=== PATIENT | male | born 2000 | race Caucasian/White ===

== ENCOUNTER 2022-05-17 10:08 | Emergency (ER) | payer OTHER ==
[2022-05-17 10:14] VITALS: BP 121/62
--- NOTE | 2022-05-17 10:29 | XRAY Report ---
PROCEDURE: Ankle 3 View LT INDICATIONS: injury/pain/swelling TECHNIQUE: 3 views of the ankle were acquired. COMPARISON: None FINDINGS: Bones: No fractures or dislocations. Ankle mortise is normally aligned. No suspicious bony lesions . Soft tissues: No tibiotalar joint effusion. Achilles tendon appears normal. Soft tissue swelling o jj the medial malleolus. IMPRESSION: Soft tissue swelling over the medial malleolus. No radiopaque foreign body. Reviewed by: Kye Lucas on 05/17/2022 9:27 AM CAMILO Approved by: Kye Lucas on 05/17/2022 9:27 AM CAMILO Station ID: [id number]
--- NOTE | 2022-05-17 11:25 | ED Physician Documentation ---
PD HPI LOWER EXT INJURY - Stated complaint Stated Complaint: LT ANKLE INJURY - Chief complaint Chief Complaint: Laceration - History obtained from History obtained from: Patient - Additional information Additional information: The patient comes to the emergency department chief complaint of left ankle laceration. He states he was chopping wood [place] his campsite and his hatchet missed the wood and the corner of it hit his ankle. He was able to walk afterward. Injury happened this morning. He sustained a laceration and wanted to get it checked. No other complaints at this time. Patient has had a tetanus shot in the last 10 years. Review of Systems Ten Systems: 10 systems reviewed and negative Constitutional: reports: Reviewed and negative Eyes: reports: Reviewed and negative Ears: reports: Reviewed and negative Nose: reports: Reviewed and negative Throat: reports: Reviewed and negative Cardiac: reports: Reviewed and negative Respiratory: reports: Reviewed and negative GI: reports: Reviewed and negative : reports: Reviewed and negative Skin: reports: Laceration (s) Musculoskeletal: reports: Reviewed and negative Neurologic: reports: Reviewed and negative Psychiatric: reports: Reviewed and negative Endocrine: reports: Reviewed and negative Immunocompromised: reports: Reviewed and negative PD PAST MEDICAL HISTORY - Present Medications Home Medications: Ambulatory Orders Medication Instructions Recorded Confirmed No Known Home Medications 05/17/22 05/17/22 - Allergies Allergies/Adverse Reactions: Allergies Allergy/AdvReac Type Severity Reaction Status Date / Time No Known Drug Allergies Allergy Verified 05/17/22 10:11 PD ED PE NORMAL - Vitals Vital signs reviewed: Yes - General General: Alert and oriented X 3, No acute distress, Well developed/nourished - HEENT HEENT: Atraumatic, PERRL, EOMI, Moist mucous membranes - Neck Neck: Supple, no meningeal sign - Cardiac Cardiac: Strong equal pulses - Respiratory Respiratory: No respiratory distress - Derm Derm: Normal color, Warm and dry, No rash, Other (1.5 cm laceration medial left ankle. Bleeding controlled. 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, No motor deficit, No sensory deficit, Normal speech - Psych Psych: Normal mood, Normal affect Results - Vitals Vitals: Oxygen O2 Source Room air - Rads (name of study) Left ankle x-ray series Radiology: Final report received, EMP read indepedently, See rad report (Negative) Procedures - Laceration (location) Left ankle Length in cm: 1.5 Wound type: Linear, Into subcut fat Neurovascular status: Sensory intact, Motor intact, Vascular intact Anesthesia: Lidocaine 1% Wound preparation: Hibiclens, Irrigated copiously NS, Wound explored, To the base Skin layer closure: Nylon, Interrupted, Size #-0 - enter number (4.0), Sutures - enter # (3) Other: Patient tolerated well, No complications, Neurovascular intact, Dressing applied, Tetanus UTD PD MEDICAL DECISION MAKING - ED course Complexity details: reviewed results, re-evaluated patient, considered differential, d/w patient ED course: Patient's wound was repaired as above. His x-ray is negative. We have discussed wound care and the timeline for suture removal. We have discussed the usual indications for return. Departure - Departure Disposition: 01 Home, Self Care Clinical Impression: Laceration Condition: Stable Instructions: ED Laceration All Comments: Wound has been repaired today with 2 synthetic sutures. These will need to be r emoved in 7 days by medical professional. In general, you should keep the wound clean and dry but you may allow water and soap to run over the wound. However, it is important that you do not rub, scrub, or immerse the wound. This is in order to prevent infection. If you begin to notice redness and swelling spreading progressively away from the wound, please have it rechecked. You will most likely have some bruising that comes up over the next couple of days as a result of the injury. Forms: Activity restrictions Discharge Date/Time: 05/17/22 11:31
== END 2022-05-17 11:31 | disposition home or self-care (01) ==
LOC: ED 10:08
DX: S91.012A Laceration without foreign body, left ankle, initial encounter (principal); W27.0XXA Contact with workbench tool, initial encounter; Y93.89 Activity, other specified
CPT/HCPCS: 12001; 99282; 99283

== ENCOUNTER 2023-07-13 16:33 | Emergency (ER) | payer OTHER ==
--- NOTE | 2023-07-13 17:36 | XRAY Report ---
PROCEDURE: Knee 3 View RT INDICATIONS: hx of recent dislocation TECHNIQUE: 3 views of the right knee were acquired. COMPARISON: None. FINDINGS: Bones: Mild lateral patellar tilting. No acute osseous fracture is identified. 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 No suspicious bony lesions. Soft tissues: Moderate to large knee joint effusion. No suspicious soft tissue calcifications or mas ses. IMPRESSION: Lateral tilting of the patella. No acute osseous fracture identified. Moderate to large joint effusio n. Reviewed by: Dave Hickman MD on 07/13/2023 5:35 PM PDT Approved by: Dave Hickman MD on 07/13/2023 5:35 PM PDT Station ID: [id number]
[2023-07-14 10:59] VITALS: BP 127/55; O2SAT 99
== END 2023-07-13 19:03 | disposition left against medical advice (07) ==
LOC: ED 16:33
DX: Z53.21 Procedure and treatment not carried out due to patient leaving prior to being seen by health care provider (principal)

== ENCOUNTER 2024-02-15 07:58 | Emergency (ER) | payer OTHER ==
--- NOTE | 2024-02-15 07:59 | ED Physician Documentation ---
PD HPI MHE - Stated complaint Stated Complaint: SI - History obtained from History obtained from: Patient - History of Present Illness Primary symptom: Suicidal ideation, Depression (for the past year or so in particular, but no treatment/counseling as yet. Had made appt that was later today.). 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 due to noise/est during day not allow good sleep, then added insomnia past week or so.), Other Similar symptoms before: No diagnosis Recently seen: Not recently seen Review of Systems Constitutional: denies: Fever, Chills Nose: denies: Rhinorrhea / runny nose, Congestion Throat: denies: Sore throat Respiratory: denies: Cough GI: denies: Abdominal Pain, Vomiting, Diarrhea Neurologic: denies: Generalized weakness Psychiatric: reports: Depressed, Suicidal (ideation without actions), Insomnia PD PAST MEDICAL HISTORY - Past Medical History Past Medical History: No Psych: Depression (has not sought counseling nor treatment. Had appt for today that he made, but was feeling suicidal so called for help. ) - Present Medications Home Medications: Ambulatory Orders Medication Instructions Recorded Confirmed No Known Home Medications 02/15/24 02/15/24 - Allergies Allergies/Adverse Reactions: Allergies Allergy/AdvReac Type Severity Reaction Status Date / Time No Known Drug Allergies Allergy Verified 02/15/24 08:31 - Living Situation Living Situation: reports: Alone (currently, as from . 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 ) Living Arrangement: reports: At home - Social History Does the pt smoke?: No Does the pt drink ETOH?: Yes ETOH Use: Other (alcholic fruit drinks mainly, every other day or so. Not daily. Denies withdrawal symptoms on days not drinking. ) Does the pt have substance abuse?: No PD ED PE NORMAL - Vitals Vital signs reviewed: Yes - General General: Alert and oriented X 3, No acute distress, Well developed/nourished - Cardiac Cardiac: RRR, No murmur - Respiratory Respiratory: Clear bilaterally - Abdomen Abdomen: Soft, Non tender - Derm Derm: Normal color, Warm and dry - Neuro Neuro: Alert and oriented X 3, No motor deficit, Normal speech Eye Opening: Spontaneous Motor: Obeys Commands Verbal: Oriented GCS Score: 15 - Psych Psych: No: Normal mood (depressed and sad. conversant and open to discussion. ) Results - Vitals Vitals: Vital Signs - 24 hr 02/15/24 08:02 Temperature 36.5 C Heart Rate 63 Respiratory 22 Rate Blood Pressure 142/75 H O2 Saturation 95 Oxygen O2 Source Room air - Labs Labs: Laboratory Tests 02/15/24 02/15/24 02/15/24 08:34 08:39 08:39 WBC 6.9 RBC 5.69 Hgb 16.0 Hct 48.5 MCV 85.2 MCH 28.1 MCHC 33.0 RDW 13.1 Plt Count 278 MPV 9.4 Neut # (Auto) 3.4 Lymph # (Auto) 2.6 Bowman # (Auto) 0.7 Eos # (Auto) 0.2 Baso # (Auto) 0.0 Absolute Nucleated RBC 0.00 Nucleated RBC % 0.0 Sodium 140 Potassium 3.8 Chloride 107 Carbon Dioxide 25 Anion Gap 8.0 BUN 11 Creatinine 0.8 Estimated GFR (MDRD) 120 Glucose 86 Calcium 9.9 Magnesium 1.8 Total Bilirubin 0.6 AST 29 ALT 36 Alkaline Phosphatase 88 Total Creatine Kinase 429 H Total Protein 6.9 Albumin 4.6 Globulin 2.3 Albumin/Globulin Ratio 2.0 Lipase 16 TSH 3.01 Urine Color LIGHT YELLOW Urine Clarity CLEAR Urine pH 6.0 Ur Specific [place] <=1.005 Urine Protein NEGATIVE Urine Glucose (UA) NEGATIVE Urine Ketones NEGATIVE Urine Occult Blood NEGATIVE Urine Nitrite NEGATIVE Urine Bilirubin NEGATIVE Urine Urobilinogen 0.2 (NORMAL) Ur Leukocyte Esterase NEGATIVE Ur Microscopic Review NOT INDICATED Urine Culture Comments NOT INDICATED Salicylates < 1.5 Urine Opiates Screen NEGATIVE Ur Buprenorphine Scrn NEGATIVE Ur Oxycodone Screen NEGATIVE Urine Methadone Screen NEGATIVE Acetaminophen 0.3 Ur Barbiturates Screen NEGATIVE Ur Tricyclics Screen NEGATIVE Ur Phencyclidine Scrn NEGATIVE Ur Amphetamine Screen NEGATIVE U Methamphetamines Scrn NEGATIVE U Benzodiazepines Scrn NEGATIVE Urine Cocaine Screen NEGATIVE U Cannabinoids Screen NEGATIVE Ur Drug Screen Comment CUTOFF CONC BELOW: Ethyl Alcohol 53.3 SARS-CoV-2 (PCR) 02/15/24 08:39 WBC RBC Hgb Hct MCV MCH MCHC RDW Plt Count MPV Neut # (Auto) Lymph # (Auto) Bowman # (Auto) Eos # (Auto) Baso # (Auto) Absolute Nucleated RBC Nucleated RBC % Sodium Potassium Chloride Carbon Dioxide Anion Gap BUN Creatinine Estimated GFR (MDRD) Glucose Calcium Magnesium Total Bilirubin AST ALT Alkaline Phosphatase Total Creatine Kinase Total Protein Albumin Globulin Albumin/Globulin Ratio Lipase TSH Urine Color Urine Clarity Urine pH Ur Specific [place] Urine Protein Urine Glucose (UA) Urine Ketones Urine Occult Blood Urine Nitrite Urine Bilirubin Urine Urobilinogen Ur Leukocyte Esterase Ur Microscopic Review Urine Culture Comments Salicylates Urine Opiates Screen Ur Buprenorphine Scrn Ur Oxycodone Screen Urine Methadone Screen Acetaminophen Ur Barbiturates Screen Ur Tricyclics Screen Ur Phencyclidine Scrn Ur Amphetamine Screen U Methamphetamines Scrn U Benzodiazepines Scrn Urine Cocaine Screen U Cannabinoids Screen Ur Drug Screen Comment Ethyl Alcohol SARS-CoV-2 (PCR) NOT DETECTED PD Medical Decision Making - ED course Complexity details: re-evaluated patient (The patient was advised of his acceptance at [facility] psychiatric floor. He was content and agreeable to this as he felt this was the most appropriate disposition for him.), considered differential, d/w patient, d/w internet consultant (Dr. Culver, psychiatry at [facility], who accepts pt in transfer. ) ED course: depressed for over a year or more. 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 Suicidal ideation with potential plan of cutting wrists. No actions. He called for help this morning. The patient has been well otherwise. Exam is benign without any abdominal tenderness or other acute process. Basic labs are normal. He is medically cleared at this point for psychiatric care and evaluation. The patient does not feel safe at home at this point with the increased suicidal ideation. He does feel inpatient would be more appropriate for himself and his own feeling of safety. Departure - Departure Disposition: 65 Psych Hosp/Unit DC/Xfer Clinical Impression: Depression, Reactive depression, Suicidal ideation Condition: Stable Record reviewed to determine appropriate education?: Yes Forms: PCP List
[2024-02-15 08:47] LABS: BILIRUBIN,URINE NEGATIVE (NEGATIVE); GLUCOSE, URINE (UA) NEGATIVE (NEGATIVE); KETONES,URINE (UA) NEGATIVE (NEGATIVE); LEUKOCYTE ESTERASE, URINE NEGATIVE (NEGATIVE); NITRITE,URINE NEGATIVE (NEGATIVE); OCCULT BLOOD,URINE NEGATIVE (NEGATIVE); PROTEIN,URINE NEGATIVE (NEGATIVE); UROBILINOGEN,URINE 0.2 (NORMAL) E.U./dL (NORMAL)
[2024-02-15 08:48] LABS: CLARITY,URINE CLEAR (CLEAR)
[2024-02-15 08:53] LABS: BASOPHILS % (AUTO) 0.4 %; EOSINOPHILS # (AUTO) 0.2 10^3/uL (0.0-0.7); EOSINOPHILS % (AUTO) 2.4 %; HCT - HEMATOCRIT 48.5 % (42.0-52.0); LYMPHOCYTES # (AUTO) 2.6 10^3/uL (1.5-3.5); LYMPHOCYTES % (AUTO) 37.8 %; MEAN CORPUSCULAR HEMOGLOBIN 28.1 pg (27.0-31.0); MEAN CORPUSCULAR VOLUME 85.2 fL (80.0-94.0); MEAN PLATELET VOLUME 9.4 fL (7.4-11.4); MONOCYTES # (AUTO) 0.7 10^3/uL (0.0-1.0); MONOCYTES % (AUTO) 9.7 %; NEUTROPHILS # (AUTO) 3.4 10^3/uL (1.5-6.6); NEUTROPHILS % (AUTO) 49.4 %; PLT - PLATELET COUNT 278 10^3/uL (130-450); RED BLOOD COUNT 5.69 10^6/uL (4.70-6.10); RED CELL DISTRIBUTION WIDTH 13.1 % (12.0-15.0); WHITE BLOOD COUNT 6.9 x10^3/uL (4.8-10.8)
[2024-02-15 08:58] LABS: AMPHETAMINE SCREEN,URINE NEGATIVE (NEGATIVE); BARBITURATE SCREEN,UR NEGATIVE (NEGATIVE); BENZODIAZEPINES SCREEN, URINE NEGATIVE (NEGATIVE); BUPRENORPHINE SCREEN, URINE NEGATIVE (NEGATIVE); COCAINE SCREEN URINE NEGATIVE (NEGATIVE); METHADONE SCREEN, URINE NEGATIVE (NEGATIVE); METHAMPHETAMINES SCREEN, URINE NEGATIVE (NEGATIVE); OPIATE SCREEN, URINE NEGATIVE (NEGATIVE); OXYCODONE SCREEN, URINE NEGATIVE (NEGATIVE); THC CANNABINOID SCREEN, URINE NEGATIVE (NEGATIVE); TRICYCLIC ANTIDEPRESSANT,URINE NEGATIVE (NEGATIVE)
[2024-02-15 09:12] LABS: ACETAMINOPHEN 0.3 ug/mL; ALBUMIN 4.6 g/dL (3.2-5.5); ALKALINE PHOSPHATASE 88 IU/L (42-121); ALT ALANINE AMINOTRANSFERASE 36 IU/L (10-60); AST ASPARTATE AMINOTRANSFERASE 29 IU/L (10-42); BILIRUBIN,TOTAL 0.6 mg/dL (0.2-1.0); BUN - BLOOD UREA NITROGEN 11 mg/dL (6-20); CALCIUM 9.9 mg/dL (8.5-10.3); CARBON DIOXIDE - CO2 25 mmol/L (21-32); CHLORIDE 107 mmol/L (101-111); CK- CREATINE KINASE 429 IU/L (30-223); CREATININE 0.8 mg/dL (0.6-1.3); ETOH - ETHANOL 53.3 mg/dL; GFR - MDRD 120 (>89); GLUCOSE 86 mg/dL (74-104); LIPASE 16 U/L (11-82); MAGNESIUM 1.8 mg/dL (1.7-2.3); POTASSIUM 3.8 mmol/L (3.5-4.5); SODIUM 140 mmol/L (135-145); TOTAL PROTEIN 6.9 g/dL (6.4-8.9)
[2024-02-15 09:13] LABS: SALICYLATE < 1.5 mg/dL
[2024-02-15 09:24] LABS: THYROID STIMULATING HORMONE 3.01 uIU/mL (0.34-5.60)
[2024-02-15 13:27] VITALS: BP 134/61; O2SAT 99
== END 2024-02-15 13:21 ==
LOC: EDBD → EDUNIT# → ED 07:58
DX: R45.851 Suicidal ideations (principal); F32.9 Major depressive disorder, single episode, unspecified
CPT/HCPCS: 36415; 80053; 80143; 80179; 80306; 81001; 81003; 82077; 82550; 83690; 83735; 84443; 85025; 87086; 87635; 99285

== ENCOUNTER 2024-04-18 13:00 | Outpatient (CLI) | payer OTHER ==
[2024-04-18 20:51] LABS: CHLAMYDIA TRACHOMATIS DNA NEGATIVE (NEGATIVE); NEISSERIA GONORRHOEAE DNA NEGATIVE (NEGATIVE); TRICHOMONAS VAGINALIS DNA NEGATIVE (NEGATIVE)
[2024-04-19 03:14] LABS: HIV SCREEN 4TH GENERATION Non Reactive (Non Reactive)
[2024-04-19 06:10] LABS: RPR Non Reactive (Non Reactive)
[2024-04-19 08:10] LABS: HSV 2 IGG TYPE SPEC <0.91 index (0.00-0.90)
== END 2024-04-18 15:40 | disposition home or self-care (01) ==
LOC: LAB.N 13:00
PROVIDERS: ATTEND Physician Assistant
DX: Z11.3 Encounter for screening for infections with a predominantly sexual mode of transmission (principal)
CPT/HCPCS: 36415; 86592; 86695; 86696; 86803; 87389; 87491; 87591; 87661

== ENCOUNTER 2024-07-31 08:00 | Outpatient (CLI) | payer OTHER ==
[2024-07-31 23:34] LABS: CHLAMYDIA TRACHOMATIS DNA NEGATIVE (NEGATIVE); NEISSERIA GONORRHOEAE DNA NEGATIVE (NEGATIVE); TRICHOMONAS VAGINALIS DNA NEGATIVE (NEGATIVE)
[2024-08-02 06:12] LABS: RPR Non Reactive (Non Reactive)
[2024-08-02 07:10] LABS: HSV 2 IGG TYPE SPEC <0.91 index (0.00-0.90)
== END 2024-07-31 23:59 | disposition home or self-care (01) ==
LOC: LAB.N 08:00
PROVIDERS: ATTEND Family Medicine
DX: Z11.3 Encounter for screening for infections with a predominantly sexual mode of transmission (principal)
CPT/HCPCS: 36415; 86592; 86695; 86696; 86803; 87389; 87491; 87591; 87661